=== PATIENT | male | born 1970 | race African-American/Black ===

== ENCOUNTER 2019-09-17 08:42 | Inpatient (IN) | payer OTHER ==
--- NOTE | 2019-09-17 09:00 | PDOC ---
History of Present Illness - General Chief Complaint: Pain, Acute Stated Complaint: RIGHT KNEE PAIN - History of Present Illness Initial Comments: The pt is a 49M w/ a history of HTN and aortic valve replacement (eliquis) who presents for evaluation of 6 days of worsening right knee pain. The pt reports walking more than usual over the last week. The pain is achy/sharp, mostly ant/ lateral, worse with movement and touch, and alleviated by rest. He has tried a topical cream with minimal relief. He states that he has been able to ambulate throughout the week. He denies fevers/chills, chest pain, trouble breathing, abdominal pain, N/V/C/D , dysuria, hematuria 09/17/19 09:22 Past History - Past Medical History Allergies/Adverse Reactions: Allergies Allergy/AdvReac Type Severity Reaction Status Date / Time No Known Allergies Allergy Verified 09/17/19 08:43 Home Medications: Ambulatory Orders Carvedilol [Coreg -] 12.5 mg PO BID 09/17/19 Furosemide [Lasix] 80 mg PO BID 09/17/19 Warfarin Sodium [Coumadin] 5 mg PO DAILY 09/17/19 Cardiac Disorders: Yes (AORTIC STENOSIS) COPD: No - Surgical History Cardiac Surgery: Yes (aortic valve) - Psycho Social/Smoking Cessation Hx Smoking History: Never smoked Hx Alcohol Use: No Drug/Substance Use Hx: No Review of Systems - Review of Systems Able to Perform ROS?: Yes Comments:: GENERAL/CONSTITUTIONAL: No fever or chills. No weakness HEAD, EYES, EARS, NOSE AND THROAT: No change in vision. No change in hearing. No sore throat CARDIOVASCULAR: No chest pain or shortness of breath RESPIRATORY: Denies cough, hemoptysis GASTROINTESTINAL: No nausea, vomiting, diarrhea or constipation GENITOURINARY: No dysuria, frequency, or change in urination MUSCULOSKELETAL: +R knee pain. No neck or back pain SKIN: No rash NEUROLOGIC: No headache, vertigo, loss of consciousness, or change in strength/ sensation ENDOCRINE: No increased thirst. No abnormal weight change HEMATOLOGIC/LYMPHATIC: +Coumadin ALLERGIC/IMMUNOLOGIC: No hives or skin allergy 09/17/19 09:00 Is the patient limited Khmer proficient: No *Physical Exam - Vital Signs Last Vital Signs Temp Pulse Resp BP Pulse Ox 98.1 F 63 16 126/58 L 100 09/17/19 08:42 09/17/19 08:42 09/17/19 08:42 09/17/19 08:42 09/17/19 08:42 - Physical Exam Comments: GENERAL: Awake, alert, and oriented to person/place/time, in no acute distress HEAD: No signs of trauma, normocephalic, atraumatic EYES: PERRLA, EOMI, sclera anicteric, conjunctiva clear ENT: Hearing grossly normal, nares patent, oropharynx clear without exudates. Moist mucosa LUNGS: No distress, speaks in full sentences, clear to auscultation bilaterally HEART: Regular rate and rhythm, normal S1 and S2, no murmurs appreciated, peripheral pulses normal and equal bilaterally ABDOMEN: Soft, nontender, normoactive bowel sounds. No guarding, no rebound EXTREMITIES: R lateral knee TTP, R tibial tuberosity TTP, mild R knee effusion, tenderness w/ active and passive ROM; Pain with valgus stress, no joint laxity appreciated; Left knee w/o TTP and w/ FROM NEUROLOGICAL: Cranial nerves II through XII grossly intact. Normal speech, no focal sensorimotor deficits SKIN: Warm, Dry 09/17/19 09:00 09/17/19 09:42 ED Treatment Course - LABORATORY CBC & Chemistry Diagram: 09/17/19 10:00 09/17/19 10:00 - RADIOLOGY Radiograph Interpretation: RAD/KNEE 2 POS-RIGHT 2 views of the right knee have been submitted. There is no sign of fracture or subluxation and no sign of blastic or lytic changes. There is a small joint effusion and fabella. If symptoms persist, further imaging and orthopedic consultation may be of help. 09/17/19 10:07 Medical Decision Making - Medical Decision Making The pt is a 49M w/ a history of HTN, aortic valve repair (coumadin) who presents for evaluation of 6 days of right knee pain. Ddx: overuse, gout, consider inflammation of LCL, ruptured perdomo cyst, not likely septic joint ED Course CMP, CBC, Uric acid, INR R knee XR Tylenol 1g for pain 09/17/19 09:39 Upon further questioning, pt endorses intermittent left toe pain Uric acid elevated to 46 Will treat with colchicine 1.2mg PO and Zofran 4mg IV Hypokalemia to 2.8, will replete with 10mg IV and 60mg PO Hyponatremia and hypochloridemia noted, will give IVF BUN worsening over several months as shown by old labs pt has, BUN 88 today and Cr stable at 3 No anemia, no leukocytosis Plan for admission for renal insufficiency, gout flair, and evaluation by Nephrology/Cardiology Pt signed out to [facility] Admitting 09/17/19 10:05 Discharge - Discharge Information Problems reviewed: Yes Clinical Impression/Diagnosis: Hypokalemia, Renal insufficiency Right knee pain Qualifiers: Chronicity: acute Qualified Code(s): M25.561 - Pain in right knee Gout Qualifiers: Gout site: knee Gout etiology: unspecified cause Chronicity: acute Laterality: right Qualified Code(s): M10.9 - Gout, unspecified Condition: Stable - Admission No - Follow up/Referral Referrals: Lucas Kimball MD [Primary Care Provider] - - Patient Discharge Instructions - Post Discharge Activity
--- NOTE | 2019-09-17 09:09 | PDOC ---
Attending Attestation - Resident Resident Name: MeraryTito enriquez - ED Attending Attestation I have performed the following: I have examined & evaluated the patient, The case was reviewed & discussed with the resident, I agree w/resident's findings & plan, Exceptions are as noted - HPI HPI: 09/17/19 09:38 49-year-old male with valvular heart disease, on Coreg/Lasix/warfarin, complains of severe right knee pain for several days. No definite trauma, although he was standing and walking more than usual for a few days before. Pain is located primarily laterally, and he is having extreme difficulty bearing weight and ambulating. There is no distal numbness tingling pain or weakness in the calf, ankle, or foot. He has had no fever/chills or other sign of systemic illness. - Physicial Exam PE: 09/17/19 09:40 Physical exam reveals normal vital signs. The patient is afebrile Normal exam except for the right knee. There is no deformity, although mild swelling and visible and palpable evidence of a small effusion are present. There is significant tenderness over the lateral joint space, LCL, and inferolateral patellar border. There is no definite increase in warmth or erythema. Because of the level of pain, it is not possible to adequately assess the MCL, LCL, and ACL, the patient is unable to relax and otherwise cooperate with the exam. There is no posterior calf swelling or tenderness, pulses are full, and there is no distal sensory or motor deficit. - Medical Decision Making 09/17/19 09:42 Assessment: Severe right knee pain, no history of trauma, but with the extent of pain it is possible that some sort of trauma has occurred. Other possibilities include gout or other metabolic arthropathy, hemorrhage into the joint due to warfarin therapy, ruptured Gardner's cyst, or early septic arthritis. Plan: White blood count, uric acid, ESR, metabolic profile, INR. X-ray. Further evaluation and treatment depending on results. Analgesics. Consider diagnostic and therapeutic arthrocentesis, especially since therapy with anti-inflammatory medication is limited due to the patient's use of warfarin. 09/17/19 11:19 Labs reveal a normal white blood count. However, BUN is 88, creatinine 3.0, potassium 2.8, uric acid 46, INR 3.6. Old records other than lab values retrieved from the patient's cell phone are not available. Review of available labs show that BUN has been climbing from approximately 50 since April, with creatinines maintained in the 3-4 range. No uric acid values available. Because of the semiurgent necessity of replacing potassium, treating elevated uric acid in the face of renal insufficiency, admission and monitoring. Nephrology and cardiac consultations. Pain control. [facility] hospitalist ANDRY Jimenez was contacted. She will see patient. To be admitted under Dr. Lorenzo.
[2019-09-17] MEDS ORDERED: ACETAMINOPHEN 325 MG TABLET (FP) PO ONE (09:20)
[2019-09-17] MEDS ORDERED: ACETAMINOPHEN 500 MG TABLET (FP) PO ONE (09:21)
[2019-09-17] MEDS ORDERED: ACETAMINOPHEN 500 MG TABLET (FP) ONE (09:23)
[2019-09-17 10:16] LABS: BASO % 0.9 % (0-2.0); EOS % 0.4 % (0-4.5); HEMATOCRIT 36.8 % (35.4-49); HEMOGLOBIN 11.8 GM/dl (11.7-16.9); LYMPH % 9.8 % (8-40); MCHC 32.2 g/dl (32.0-35.9); MEAN CELL VOLUME 90.2 fl (80-96); MEAN PLT VOLUME 9.9 fl (7.5-11.1); MONO % 10.4 % (3.8-10.2); NEUT % 78.5 % (42.8-82.8); PLATELET COUNT 83 K/MM3 (134-434); RBC 4.08 M/mm3 (4.00-5.60); RDW 14.4 % (11.9-15.9); WHITE BLOOD COUNT 5.7 K/mm3 (4.0-10.8)
[2019-09-17 10:18] LABS: INR 3.62 (0.82-1.09); PROTHROMBIN TIME (PATIENT) 39.5 SEC (10.2-13.0)
[2019-09-17 10:23] LABS: ALBUMIN 4.2 g/dl (3.4-5.0); BILIRUBIN,TOTAL 1.3 mg/dl (0.2-1); CALCIUM 9.3 mg/dl (8.5-10); TOT PROT 8.9 g/dl (6.4-8.2)
[2019-09-17 10:53] LABS: POTASSIUM 2.8 mmol/L (3.5-5.1); URIC ACID 46.5 mg/dl (2.6-7.2)
[2019-09-17] MEDS ORDERED: KCL 10 MEQ IVPB 10 MEQ/100 ML INFUS.BAG IVPB ONE (11:10)
[2019-09-17] MEDS ORDERED: SODIUM CHLORIDE 0.9% 500 ML INFUS.BAG IV ONE (11:18)
[2019-09-17] MEDS ORDERED: COLCHICINE 0.6 MG CAP PO ONE (11:18)
[2019-09-17] MEDS ORDERED: ONDANSETRON 4 MG/2 ML VIAL IVPUSH ONE (11:18)
[2019-09-17] MEDS ORDERED: POTASSIUM CHLORIDE TABS 20 MEQ TABLET.ER (FP) PO ONE ×2 (11:19→11:23)
[2019-09-17] MEDS ORDERED: COLCHICINE 0.6 MG CAP ONE (11:22)
[2019-09-17] MEDS ORDERED: ONDANSETRON 4 MG/2 ML VIAL ONE (11:23)
[2019-09-17] MEDS ORDERED: KCL 10 MEQ IVPB 10 MEQ/100 ML INFUS.BAG IVPB SCH (11:30)
[2019-09-17 11:44] LABS: CREATININE 3.2 mg/dl (0.55-1.3)
[2019-09-17 12:00] LABS: POTASSIUM 2.7 mmol/L (3.5-5.1)
--- NOTE | 2019-09-17 14:06 | HP ---
CHIEF COMPLAINT: Right knee pain Configuration Analyst: Dr. Lucas Kimball, [place] HISTORY OF PRESENT ILLNESS: 49-year-old male with a PMH significant for a congenital heart condition diagnosed at age 7, s/p mechanical aortic valve replacement at age 12, on lifelong coumadin. Also with heart failure (NOS) on high dose diuretics; s/p AICD in December 2018; s/p non-emergent cardiac cath several weeks ago, results pending. Also with chronic kidney disease with a baseline Cr 2.6-->3, and chronic hematuria. No recent changes in medications. On Saturday patient developed pain in his right knee. The pain has been severe and has prevented weight-bearing and ambulation. There is no distal numbness tingling pain or weakness in the calf, ankle, or foot. He has had no fever/chills or other sign of systemic illness. He has no previous history of gout or arthritis. ER course was notable for: (1) Platelets 83k (2) K 2.7; Cl 95; BUN 89; Cr 3.2 (3) INR 3.62 (4) Uric acid 46.5 (5) UA: RBC >100 (6) Colchicine PO 1.2mg x 1; NS x 1L; KCL IVPB 10meq x 1; K-dur PO 60mg x 1 (7) ECG: SR @63bpm, TW mild ST depressions II, III, AVF Recent Travel: No PAST MEDICAL HISTORY: Hypertension Heart failure NOS Chronic kidney disease Chronic hematuria PAST SURGICAL HISTORY: Mechanical aortic valve replacement age 12 AICD 12/2018 Social History: lives with sister in [place], presently not employed Smoking: never Alcohol: no Drugs: no Allergies No Known Allergies Allergy (Verified 09/17/19 08:43) HOME MEDICATIONS: Home Medications Medication Instructions Recorded Carvedilol [Coreg -] 12.5 mg PO BID 09/17/19 Furosemide [Lasix] 80 mg PO BID 09/17/19 Metolazone [Zaroxolyn -] 2.5 mg PO ASDIR 09/17/19 Warfarin Sodium [Coumadin] 2.5 mg PO ASDIR 09/17/19 Warfarin Sodium [Coumadin] 5 mg PO ASDIR 09/17/19 REVIEW OF SYSTEMS CONSTITUTIONAL: Absent: fever, chills, diaphoresis, generalized weakness, malaise, loss of appetite, weight change HEENT: Absent: rhinorrhea, nasal congestion, throat pain, throat swelling, difficulty swallowing, mouth swelling, ear pain, eye pain, visual changes CARDIOVASCULAR: Absent: chest pain, syncope, palpitations, irregular heart rate, lightheadedness , peripheral edema RESPIRATORY: Absent: cough, shortness of breath, dyspnea with exertion, orthopnea, wheezing, stridor, hemoptysis GASTROINTESTINAL: Absent: abdominal pain, abdominal distension, nausea, vomiting, diarrhea, constipation, melena, hematochezia GENITOURINARY: Absent: dysuria, frequency, urgency, hesitancy, hematuria, flank pain, genital pain MUSCULOSKELETAL: +right knee pain, swelling Absent: myalgia, arthralgia, joint swelling, back pain, neck pain SKIN: Absent: rash, itching, pallor HEMATOLOGIC/IMMUNOLOGIC: Absent: easy bleeding, easy bruising, lymphadenopathy, frequent infections ENDOCRINE: Absent: unexplained weight gain, unexplained weight loss, heat intolerance, cold intolerance NEUROLOGIC: Absent: headache, focal weakness or paresthesias, dizziness, unsteady gait, seizure, mental status changes, bladder or bowel incontinence PSYCHIATRIC: Absent: anxiety, depression, suicidal or homicidal ideation, hallucinations. PHYSICAL EXAMINATION Vital Signs - 24 hr 09/17/19 09/17/19 09/17/19 08:42 11:38 13:37 Temperature 98.1 F Pulse Rate 63 Pulse Rate [ 69 64 Left] Respiratory 16 15 15 Rate Blood Pressure 126/58 L Blood Pressure 116/67 107/57 L [Right Arm] O2 Sat by Pulse 100 99 100 Oximetry (%) GENERAL: Awake, alert, and fully oriented, in mild distress secondary to pain LUNGS: CTA HEART: Regular rate and rhythm, S1 and S2 mechanical valve sounds; well-healed mediastinal surgical scar ABDOMEN: Soft, nontender, not distended UPPER EXTREMITIES: 2+ pulses, warm, well-perfused. No cyanosis. No clubbing. No peripheral edema. RIGHT LOWER EXTREMITY: Right knee swollen, stiff, warm, exquisitely tender; 2+ pulse DP pulse, no calf tenderness NEUROLOGICAL: Cranial nerves II-XII intact. Normal speech. SKIN: Warm, dry, normal turgor Laboratory Results - last 24 hr 09/17/19 09/17/19 09/17/19 10:00 10:00 10:00 WBC 5.7 RBC 4.08 Hgb 11.8 Hct 36.8 MCV 90.2 MCH 29.0 MCHC 32.2 RDW 14.4 Plt Count 83 L MPV 9.9 Absolute Neuts (auto) 4.4 Neutrophils % 78.5 Lymphocytes % 9.8 Monocytes % 10.4 H Eosinophils % 0.4 Basophils % 0.9 ESR 28 H PT with INR INR Sodium 135 L Potassium 2.8 L* Chloride 95 L Carbon Dioxide 26 Anion Gap 14 BUN 88.0 H Creatinine 3.0 H Est GFR (CKD-EPI)AfAm 26.83 Est GFR (CKD-EPI)NonAf 23.15 Random Glucose 101 Uric Acid 46.5 H* Calcium 9.3 Total Bilirubin 1.3 H AST 21 ALT 11 L Alkaline Phosphatase 83 Creatine Kinase Troponin I Total Protein 8.9 H Albumin 4.2 Urine Color Urine Appearance Urine pH Urine Protein Urine Glucose (UA) Urine Ketones Urine Blood Urine Nitrite Urine Bilirubin Urine Urobilinogen Ur Leukocyte Esterase Urine RBC Urine WBC 09/17/19 09/17/19 09/17/19 10:00 10:00 10:00 WBC RBC Hgb Hct MCV MCH MCHC RDW Plt Count MPV Absolute Neuts (auto) Neutrophils % Lymphocytes % Monocytes % Eosinophils % Basophils % ESR PT with INR 39.5 H INR 3.62 H Sodium Potassium Chloride Carbon Dioxide Anion Gap BUN Creatinine Est GFR (CKD-EPI)AfAm Est GFR (CKD-EPI)NonAf Random Glucose Uric Acid Calcium Total Bilirubin AST ALT Alkaline Phosphatase Creatine Kinase 112 Troponin I 0.03 Total Protein Albumin Urine Color Urine Appearance Urine pH Urine Protein Urine Glucose (UA) Urine Ketones Urine Blood Urine Nitrite Urine Bilirubin Urine Urobilinogen Ur Leukocyte Esterase Urine RBC Urine WBC 09/17/19 09/17/19 11:07 11:46 WBC RBC Hgb Hct MCV MCH MCHC RDW Plt Count MPV Absolute Neuts (auto) Neutrophils % Lymphocytes % Monocytes % Eosinophils % Basophils % ESR PT with INR INR Sodium 135 L Potassium 2.7 L* Chloride 95 L Carbon Dioxide 28 Anion Gap 12 BUN 89.0 H Creatinine 3.2 H Est GFR (CKD-EPI)AfAm 24.82 Est GFR (CKD-EPI)NonAf 21.41 Random Glucose 99 Uric Acid Calcium 9.0 Total Bilirubin AST ALT Alkaline Phosphatase Creatine Kinase Troponin I Total Protein Albumin Urine Color Yellow Urine Appearance Clear Urine pH 6.0 Urine Protein Negative Urine Glucose (UA) Negative Urine Ketones Negative Urine Blood 3+ H Urine Nitrite Negative Urine Bilirubin Negative Urine Urobilinogen 1.0 Ur Leukocyte Esterase Negative Urine RBC >100 Urine WBC 0-2 ASSESSMENT/PLAN: 49-year-old male with a PMH significant for mechanical aortic valve replacement age 12, CHF, AICD, recent non-emergent cardiac cath, CKD, chronic hematuria. Admitted for a swollen, painful right knee. Painful, swollen right knee --r/o gout: uric acid significantly elevated; colchicine 1.8mg was dosed with little relief of symptoms; patient with renal impairment and also on a P- gp inhibitor (carvedilol); hold further colchicine; NSAIDS contraindicated (GFR <60, heart failure, on anticoagulation); glucocorticoids problematic due to possible concurrent infection; rheumatology consult placed --r/o septic joint: would be optimal to tap joint prior to starting antibiotics but supratherapeutic INR; will start empiric antibiotics ( mechanical valve and onset of symptoms several weeks after a cardiac cath); start vanc and zosyn renally dosed; echo in am; cardiology consult placed Hypokalemia --2.7 in ED, repleted -->3.6 Chronic kidney disease Chronic hematuria --according to patient, baseline BUN/Cr 50/2.6-->3.0; now 89/3.2 --will hold diuretics tonight, reassess after am labs Mechanical aortic valve --INR supratherapeutic (range 2.5-3.5 for mechanical valve) --hold warfarin tonight --repeat INR in am Heart failure, NOS --hold diuretics tonight --continue carvedilol Thrombocytopenia --monitor ECG changes --ECG: SR @63bpm, TW mild ST depressions II, III, AVF --troponins neg x 2 --cardiology consult FEN Fluids: PO intake adequate Electrolytes: replete as indicated Nutrition: low sodium DVT prophylaxis: INR supratherapeutic; hold coumadin tonight Dispo: continues to require inpatient care. Full code. Visit type - Emergency Visit Emergency Visit: Yes ED Registration Date: 09/17/19 Care time: The patient presented to the Emergency Department on the above date and was hospitalized for further evaluation of their emergent condition. - New Patient This patient is new to me today: Yes Date on this admission: 09/17/19 - Critical Care Critical Care patient: No
[2019-09-17] MEDS ORDERED: COLCHICINE 0.6 MG CAP PO STA (14:52)
[2019-09-17 15:35] VITALS: BMI 22.5
[2019-09-17 17:37] LABS: ALBUMIN 3.8 g/dl (3.4-5.0); BILIRUBIN,TOTAL 1.3 mg/dl (0.2-1); CALCIUM 8.9 mg/dl (8.5-10); MAGNESIUM 2.1 mg/dL (1.8-2.4); POTASSIUM 3.6 mmol/L (3.5-5.1); TOT PROT 8.5 g/dl (6.4-8.2)
[2019-09-17] MEDS ORDERED: VANCOMYCIN 1,000 MG in DEXTROSE 5%-WATER - 250 ML IVPB SCH (19:00)
[2019-09-17] MEDS ORDERED: VANCOMYCIN 1 GRAM (PRE-DOCKED) 1,000 MG/250 ML BAG IVPB SCH (19:15)
[2019-09-17 20:25] LABS: EPITHELIAL CELLS FEW /hpf
[2019-09-17] MEDS ORDERED: PIPERACILLIN/TAZOB 2.25 GM 2.25 GM in DEXTROSE 5%-WATER - 50 ML IVPB SCH (21:00)
[2019-09-17] MEDS ORDERED: PIPERACILLIN/TAZOBACTAM 2.25 GM VIAL IVPB ONE (21:40)
[2019-09-17] MEDS ORDERED: DEXTROSE 5%-WATER - 50 ML IVPB ONE (21:41)
[2019-09-17] MEDS: PIPERACILLIN/TAZOB 2.25 GM 2.25 GM in DEXTROSE 5%-WATER - 50 ML IVPB SCH (21:43)
[2019-09-17] MEDS: HEPARIN NA (PORCINE) 5,000 UNITS/ML 1ML VIAL SQ SCH (21:44)
[2019-09-17] MEDS ORDERED: CARVEDILOL 12.5 MG TABLET (FP) PO SCH (22:00)
[2019-09-18] MEDS ORDERED: PIPERACILLIN/TAZOBACTAM 2.25 GM VIAL IVPB ONE ×4 (03:15→20:52)
[2019-09-18] MEDS ORDERED: DEXTROSE 5%-WATER - 50 ML IVPB ONE ×4 (03:15→20:52)
[2019-09-18] MEDS: PIPERACILLIN/TAZOB 2.25 GM 2.25 GM in DEXTROSE 5%-WATER - 50 ML IVPB SCH ×3 (03:25→15:00)
[2019-09-18] MEDS: ACETAMINOPHEN 1000 MG/100 ML VIAL (NON FORMULARY) IVPB PRN ×2 (05:34→21:31)
[2019-09-18] MEDS: HEPARIN NA (PORCINE) 5,000 UNITS/ML 1ML VIAL SQ SCH (05:35)
[2019-09-18 08:01] LABS: BASO % 0.6 % (0-2.0); HEMATOCRIT 33.6 % (35.4-49); HEMOGLOBIN 11.2 GM/dl (11.7-16.9); INR 3.45 (0.82-1.09); LYMPH % 14.5 % (8-40); MCH 30.2 pg (25.7-33.7); MCHC 33.2 g/dl (32.0-35.9); MEAN CELL VOLUME 91.1 fl (80-96); MEAN PLT VOLUME 10.3 fl (7.5-11.1); MONO % 12.3 % (3.8-10.2); NEUT % 71.6 % (42.8-82.8); PLATELET COUNT 69 K/MM3 (134-434); PROTHROMBIN TIME (PATIENT) 37.7 SEC (10.2-13.0); RBC 3.69 M/mm3 (4.00-5.60); WHITE BLOOD COUNT 4.7 K/mm3 (4.0-10.8)
[2019-09-18 08:09] LABS: ACTIVATED PTT 61.2 SECONDS (25.2-36.5)
[2019-09-18 08:24] LABS: ALBUMIN 3.6 g/dl (3.4-5.0); BILIRUBIN,TOTAL 1.2 mg/dl (0.2-1); CALCIUM 9.2 mg/dl (8.5-10); CREATININE 3.2 mg/dl (0.55-1.3); MAGNESIUM 1.9 mg/dL (1.8-2.4); PHOSPHOROUS 3.8 mg/dl (2.5-4.9); POTASSIUM 3.2 mmol/L (3.5-5.1); TOT PROT 7.9 g/dl (6.4-8.2)
--- NOTE | 2019-09-18 08:57 | PN ---
Physical Exam: SUBJECTIVE: Patient seen and examined at bedside. OBJECTIVE: Vital Signs Period Temp Pulse Resp BP Sys/[place] Pulse Ox Last 24 Hr 97.6 F-98.6 F 62-69 15-20 100-118/45-67 96-100 GENERAL: The patient is awake, alert, and fully oriented, in no acute distress. HEAD: Normal with no signs of trauma. EYES: PERRL, extraocular movements intact, sclera anicteric, conjunctiva clear. No ptosis. ENT: Ears normal, nares patent, oropharynx clear without exudates, moist mucous membranes. NECK: Trachea midline, full range of motion, supple. LUNGS: Breath sounds equal, clear to auscultation bilaterally, no wheezes, no crackles, no accessory muscle use. HEART: Regular rate and rhythm, S1, S2 without murmur, rub or gallop. ABDOMEN: Soft, nontender, nondistended, normoactive bowel sounds, no guarding, no rebound, no hepatosplenomegaly, no masses. EXTREMITIES: 2+ pulses, warm, well-perfused, no edema. NEUROLOGICAL: Cranial nerves II through XII grossly intact. Normal speech, gait not observed. PSYCH: Depressed affect. SKIN: Warm, dry, normal turgor, no rashes or lesions noted Laboratory Results - last 24 hr 09/17/19 09/17/19 09/17/19 10:00 10:00 10:00 WBC 5.7 RBC 4.08 Hgb 11.8 Hct 36.8 MCV 90.2 MCH 29.0 MCHC 32.2 RDW 14.4 Plt Count 83 L MPV 9.9 Absolute Neuts (auto) 4.4 Neutrophils % 78.5 Lymphocytes % 9.8 Monocytes % 10.4 H Eosinophils % 0.4 Basophils % 0.9 ESR 28 H PT with INR INR PTT (Actin FS) Sodium 135 L Potassium 2.8 L* Chloride 95 L Carbon Dioxide 26 Anion Gap 14 BUN 88.0 H Creatinine 3.0 H Est GFR (CKD-EPI)AfAm 26.83 Est GFR (CKD-EPI)NonAf 23.15 Random Glucose 101 Uric Acid 46.5 H* Calcium 9.3 Phosphorus Magnesium Total Bilirubin 1.3 H AST 21 ALT 11 L Alkaline Phosphatase 83 Creatine Kinase Troponin I C-Reactive Protein Total Protein 8.9 H Albumin 4.2 Urine Color Urine Appearance Urine pH Urine Protein Urine Glucose (UA) Urine Ketones Urine Blood Urine Nitrite Urine Bilirubin Urine Urobilinogen Ur Leukocyte Esterase Urine RBC Urine WBC Ur Transition Epith Cell Urine Bacteria 09/17/19 09/17/19 09/17/19 10:00 10:00 10:00 WBC RBC Hgb Hct MCV MCH MCHC RDW Plt Count MPV Absolute Neuts (auto) Neutrophils % Lymphocytes % Monocytes % Eosinophils % Basophils % ESR PT with INR 39.5 H INR 3.62 H PTT (Actin FS) Sodium Potassium Chloride Carbon Dioxide Anion Gap BUN Creatinine Est GFR (CKD-EPI)AfAm Est GFR (CKD-EPI)NonAf Random Glucose Uric Acid Calcium Phosphorus Magnesium Total Bilirubin AST ALT Alkaline Phosphatase Creatine Kinase 112 Troponin I 0.03 C-Reactive Protein Total Protein Albumin Urine Color Urine Appearance Urine pH Urine Protein Urine Glucose (UA) Urine Ketones Urine Blood Urine Nitrite Urine Bilirubin Urine Urobilinogen Ur Leukocyte Esterase Urine RBC Urine WBC Ur Transition Epith Cell Urine Bacteria 09/17/19 09/17/19 09/17/19 11:07 11:07 11:07 WBC RBC Hgb Hct MCV MCH MCHC RDW Plt Count MPV Absolute Neuts (auto) Neutrophils % Lymphocytes % Monocytes % Eosinophils % Basophils % ESR PT with INR INR PTT (Actin FS) Sodium 135 L Potassium 2.7 L* Chloride 95 L Carbon Dioxide 28 Anion Gap 12 BUN 89.0 H Creatinine 3.2 H Est GFR (CKD-EPI)AfAm 24.82 Est GFR (CKD-EPI)NonAf 21.41 Random Glucose 99 Uric Acid Calcium 9.0 Phosphorus Magnesium 2.1 Total Bilirubin AST ALT Alkaline Phosphatase Creatine Kinase Troponin I C-Reactive Protein 0.4 H Total Protein Albumin Urine Color Urine Appearance Urine pH Urine Protein Urine Glucose (UA) Urine Ketones Urine Blood Urine Nitrite Urine Bilirubin Urine Urobilinogen Ur Leukocyte Esterase Urine RBC Urine WBC Ur Transition Epith Cell Urine Bacteria 09/17/19 09/17/19 09/17/19 11:46 16:45 16:45 WBC RBC Hgb Hct MCV MCH MCHC RDW Plt Count MPV Absolute Neuts (auto) Neutrophils % Lymphocytes % Monocytes % Eosinophils % Basophils % ESR PT with INR INR PTT (Actin FS) Sodium 137 Potassium 3.6 Chloride 98 Carbon Dioxide 29 Anion Gap 10 BUN 88.0 H Creatinine 3.0 H Est GFR (CKD-EPI)AfAm 26.83 Est GFR (CKD-EPI)NonAf 23.15 Random Glucose 94 Uric Acid Calcium 8.9 Phosphorus Magnesium 2.1 Total Bilirubin 1.3 H AST 19 ALT 12 L Alkaline Phosphatase 80 Creatine Kinase Troponin I 0.03 C-Reactive Protein Total Protein 8.5 H Albumin 3.8 Urine Color Yellow Urine Appearance Clear Urine pH 6.0 Urine Protein Negative Urine Glucose (UA) Negative Urine Ketones Negative Urine Blood 3+ H Urine Nitrite Negative Urine Bilirubin Negative Urine Urobilinogen 1.0 Ur Leukocyte Esterase Negative Urine RBC >100 Urine WBC 0-2 Ur Transition Epith Cell Urine Bacteria 09/17/19 09/18/19 09/18/19 20:00 07:21 07:21 WBC 4.7 RBC 3.69 L Hgb 11.2 L Hct 33.6 L MCV 91.1 MCH 30.2 MCHC 33.2 RDW 14.0 Plt Count 69 L MPV 10.3 Absolute Neuts (auto) 3.4 Neutrophils % 71.6 Lymphocytes % 14.5 D Monocytes % 12.3 H Eosinophils % 1.0 D Basophils % 0.6 ESR PT with INR 37.7 H INR 3.45 H PTT (Actin FS) 61.2 H Sodium Potassium Chloride Carbon Dioxide Anion Gap BUN Creatinine Est GFR (CKD-EPI)AfAm Est GFR (CKD-EPI)NonAf Random Glucose Uric Acid Calcium Phosphorus Magnesium Total Bilirubin AST ALT Alkaline Phosphatase Creatine Kinase Troponin I C-Reactive Protein Total Protein Albumin Urine Color Yellow Urine Appearance Clear Urine pH 6.0 Urine Protein Negative Urine Glucose (UA) Negative Urine Ketones Negative Urine Blood 3+ H Urine Nitrite Negative Urine Bilirubin Negative Urine Urobilinogen 4.0 e.u/dl Ur Leukocyte Esterase Negative Urine RBC 40-60 Urine WBC 0-2 Ur Transition Epith Cell Few Urine Bacteria Rare 09/18/19 07:21 WBC RBC Hgb Hct MCV MCH MCHC RDW Plt Count MPV Absolute Neuts (auto) Neutrophils % Lymphocytes % Monocytes % Eosinophils % Basophils % ESR PT with INR INR PTT (Actin FS) Sodium 138 Potassium 3.2 L Chloride 99 Carbon Dioxide 28 Anion Gap 11 BUN 80.0 H Creatinine 3.2 H Est GFR (CKD-EPI)AfAm 24.82 Est GFR (CKD-EPI)NonAf 21.41 Random Glucose 100 Uric Acid Calcium 9.2 Phosphorus 3.8 Magnesium 1.9 Total Bilirubin 1.2 H AST 19 ALT 12 L Alkaline Phosphatase 71 Creatine Kinase Troponin I C-Reactive Protein Total Protein 7.9 Albumin 3.6 Urine Color Urine Appearance Urine pH Urine Protein Urine Glucose (UA) Urine Ketones Urine Blood Urine Nitrite Urine Bilirubin Urine Urobilinogen Ur Leukocyte Esterase Urine RBC Urine WBC Ur Transition Epith Cell Urine Bacteria Active Medications Generic Name Dose Route Start Last Admin Trade Name Freq PRN Reason Stop Dose Admin Acetaminophen 1,000 mg 09/17/19 20:07 09/18/19 05:34 Ofirmev Injection - IVPB 1,000 mg Q6H PRN Administration PAIN LEVEL 1-5 Carvedilol 12.5 mg 09/18/19 10:00 Coreg - PO BID SOLO Furosemide 80 mg 09/18/19 10:00 Lasix - PO BID SOLO Heparin Sodium (Porcine) 5,000 unit 09/17/19 22:00 09/18/19 05:35 Heparin - SQ 5,000 unit TID SOLO Administration Vancomycin HCl 1,000 mg/ 250 mls @ 166.667 mls/hr 09/17/19 19:15 Dextrose IVPB Q24H SOLO Protocol Piperacillin Sod/Tazobactam 50 mls @ 100 mls/hr 09/17/19 21:00 Sod 2.25 gm/ Dextrose IVPB Q6H-IV SOLO Protocol Piperacillin Sod/Tazobactam 50 mls @ 100 mls/hr 09/17/19 21:00 09/18/19 03:25 Sod 2.25 gm/ Dextrose IVPB 09/18/19 15:29 100 mls/hr Q6H-IV SOLO Administration Protocol Metolazone 2.5 mg 09/18/19 10:00 Zaroxolyn - PO DAILY SOLO Potassium Chloride 40 meq 09/18/19 08:45 K-Dur - PO 09/18/19 14:46 Q6H SOLO ADDITIONAL HPI: History from [facility]/Dr. Lucas Kimball. Patient with congenital aortic stenosis: (1) two mechanical aortic valve replacements, ages 7 and 9; (2) LV to aortic conduit, age 10. Now with biventricular systolic and diastolic heart failure with recurrent exacerbations, moderate pulmonary HTN. ASSESSMENT/PLAN: 49-year-old male with a PMH significant for congenital aortic stenosis s/p two mechanical aortic valve replacements, ages 7 and 9, s/p LV to aortic conduit, age 10, s/p AICD, biventricular systolic and diastolic heart failure with recurrent exacerbations, HTN, moderate pulmonary HTN, CKD, and chronic hematuria , Admitted for a swollen, painful right knee. Painful, swollen right knee --r/o gout: spot uric acid significantly elevated; colchicine 1.8mg was dosed with little relief of symptoms; patient with renal impairment and also on a P-gp inhibitor (carvedilol); hold further colchicine; NSAIDS contraindicated ( GFR <60, heart failure, on anticoagulation); glucocorticoids problematic due to possible concurrent infection; rheumatology consult pending --r/o septic joint: would have been optimal to tap joint prior to starting antibiotics but supratherapeutic INR; continue empiric Vanc and Zosyn pending echo to r/o vegetation; cardiology consult pending; ID consult pending --r/o mechanical cause: seen and evaluated by Dr. Olson, meniscal tear v. stress injury to bone? would like to get MRI; discussed with [facility] cardiology team, they will get back to us re: compatability with mechanical valve; AICD should be able to switched to MRI mode by [employer] Hypokalemia --repleted again Chronic kidney disease Chronic hematuria --according to patient, baseline BUN/Cr 50/2.6-->3.0; now 80/3.2 --resumed home diuretic regimen, Lasix PO 80mg BID, metolazone 2.5mg daily Mechanical aortic valve --INR 3.45 today (goal 2.5-3.5) --warfain 2.5mg today --daily INR, daily dosing Biventricular systolic and diastolic heart failure --resumed diuretics Hypertension --continue carvedilol Thrombocytopenia --continue to monitor ECG changes --ECG: SR @63bpm, TW mild ST depressions II, III, AVF --troponins neg x 2 --cardiology consult FEN Fluids: PO intake adequate Electrolytes: replete as indicated Nutrition: low sodium DVT prophylaxis: INR therapeutic; dose coumadin 2.5mg today Dispo: continues to require inpatient care. Full code. Visit type - Emergency Visit Emergency Visit: Yes ED Registration Date: 09/17/19 Care time: The patient presented to the Emergency Department on the above date and was hospitalized for further evaluation of their emergent condition. - New Patient This patient is new to me today: No - Critical Care Critical Care patient: Yes Total Critical Care Time (in minutes): 60 Critical Care Statement: The care of this patient involved high complexity decision making to prevent further life threatening deterioration of the patient 's condition and/or to evaluate & treat vital organ system(s) failure or risk of failure.
--- NOTE | 2019-09-18 09:19 | CON.ORTH ---
Consult Consult Specialty:: orthopedics - History of Present Illness Chief Complaint: R knee pain History of Present Illness: 49y M here w several days of worsening R knee pain no trauma felt pain mainly laterally no history of swollen or painful joints pt does have CRI no fevers, no chills no numbness or tingling no pain elsewhere - History Source History Provided By: Patient, Medical Record Limitations to Obtaining History: No Limitations - Past Medical History Cardio/Vascular: Yes: Other (congenital heart disease) Renal/: Yes: Renal Inusuff - Past Surgical History Past Surgical History: Yes: Valve Replacement - Alcohol/Substance Use Hx Alcohol Use: No - Smoking History Smoking history: Never smoked Have you smoked in the past 12 months: No Home Medications - Allergies Allergies/Adverse Reactions: Allergies Allergy/AdvReac Type Severity Reaction Status Date / Time No Known Allergies Allergy Verified 09/17/19 08:43 - Home Medications Home Medications: Ambulatory Orders Carvedilol [Coreg -] 12.5 mg PO BID 09/17/19 Furosemide [Lasix] 80 mg PO BID 09/17/19 Metolazone [Zaroxolyn -] 2.5 mg PO ASDIR 09/17/19 Warfarin Sodium [Coumadin] 2.5 mg PO ASDIR 09/17/19 Warfarin Sodium [Coumadin] 5 mg PO ASDIR 09/17/19 Physical Exam for Ortho Vital Signs: Vital Signs Temperature 98.0 F 09/18/19 05:00 Pulse Rate 62 09/18/19 05:00 Respiratory Rate 16 09/18/19 09:00 Blood Pressure 118/54 L 09/18/19 05:00 O2 Sat by Pulse Oximetry (%) 98 09/18/19 09:00 Constitutional: Yes: Well Nourished, No Distress, Calm (Right knee exam:) Labs: CBC, BMP 09/18/19 07:21 09/18/19 07:21 INR, PTT INR 3.45 (0.82-1.09) H 09/18/19 07:21 Imaging - Results X-ray: Report Reviewed, Image Reviewed (Slight degenerative change.) Problem List - Problems (1) Right knee pain Assessment/Plan: I discussed today's findings with Mr. Collins. Given his lack of fever, lack of white count, lack of large effusion, lack of warmth, infection seems very unlikely. His elevated ESR may be due to his underlying renal disease. While a gout presentation can be variable, the lack of inflammatory symptoms make out less likely to explain severe pain in this situation. I believe more likely is some type of mechanical cause. I am ordering MRI to rule out meniscal tear or stress injury to the bone. Code(s): M25.561 - PAIN IN RIGHT KNEE Qualifiers: Chronicity: acute Qualified Code(s): M25.561 - Pain in right knee
[2019-09-18] MEDS ORDERED: PT OWN MED DRAWER 7, Y5N ONE (09:28)
[2019-09-18] MEDS ORDERED: METOLAZONE 2.5 MG TABLET (FP) PO SCH (09:30)
[2019-09-18] MEDS: POTASSIUM CHLORIDE TABS 20 MEQ TABLET.ER (FP) PO SCH ×2 (09:44→16:00)
[2019-09-18] MEDS: CARVEDILOL 12.5 MG TABLET (FP) PO SCH ×2 (09:46→21:30)
[2019-09-18] MEDS: FUROSEMIDE 40 MG TABLET (FP) PO SCH ×2 (09:46→17:27)
[2019-09-18] MEDS ORDERED: WARFARIN NA 2.5 MG TABLET (FP) PO ONE ×2 (10:30→18:00)
[2019-09-18 11:48] LABS: N-TERMINAL BNP 6636.7 pg/ml (5-125)
--- NOTE | 2019-09-18 13:19 | EKG ---
Test Reason : Blood Pressure : / mmHG Vent. Rate : 069 BPM Atrial Rate : 069 BPM P-R Int : 142 ms QRS Dur : 108 ms QT Int : 420 ms P-R-T Axes : 030 089 263 degrees QTc Int : 450 ms SINUS RHYTHM WITH SINUS ARRHYTHMIA WITH OCCASIONAL PREMATURE VENTRICULAR COMPLEXES NONSPECIFIC ST AND T WAVE ABNORMALITY ABNORMAL ECG WHEN COMPARED WITH ECG OF 17-SEP-2019 11:28, PREMATURE VENTRICULAR COMPLEXES ARE NOW PRESENT Confirmed by HARDY TALLEY MD ([id number]) on 09/18/2019 1:19:25 PM Referred By: ARTHUR ROMANO Confirmed By:HARDY TALLEY MD
--- NOTE | 2019-09-18 13:34 | EKG ---
Test Reason : Blood Pressure : / mmHG Vent. Rate : 063 BPM Atrial Rate : 063 BPM P-R Int : 146 ms QRS Dur : 108 ms QT Int : 430 ms P-R-T Axes : 026 100 -82 degrees QTc Int : 440 ms NORMAL SINUS RHYTHM RIGHTWARD AXIS ABNORMAL ECG NO PREVIOUS ECGS AVAILABLE Confirmed by HARDY TALLEY MD ([id number]) on 09/18/2019 1:34:04 PM Referred By: GENTRY CANDELARIO Confirmed By:HARDY TALLEY MD
--- NOTE | 2019-09-18 14:23 | DS ---
Physical Exam: SUBJECTIVE: Patient seen and examined OBJECTIVE: Vital Signs Period Temp Pulse Resp BP Sys/[place] Pulse Ox Last 24 Hr 98.0 F-98.6 F 62-69 16-20 98-118/45-60 96-99 PHYSICAL EXAM GENERAL: Awake, alert, and fully oriented, in mild distress secondary to pain LUNGS: CTA HEART: Regular rate and rhythm, S1 and S2 mechanical valve sounds; well-healed mediastinal surgical scar ABDOMEN: Soft, nontender, not distended UPPER EXTREMITIES: 2+ pulses, warm, well-perfused. No cyanosis. No clubbing. No peripheral edema. RIGHT LOWER EXTREMITY: Right knee swollen, stiff, warm, exquisitely tender; 2+ pulse DP pulse, no calf tenderness NEUROLOGICAL: Cranial nerves II-XII intact. Normal speech. SKIN: Warm, dry, normal turgor LABS Laboratory Results - last 24 hr 09/17/19 09/17/19 09/17/19 11:07 11:07 16:45 WBC RBC Hgb Hct MCV MCH MCHC RDW Plt Count MPV Absolute Neuts (auto) Neutrophils % Lymphocytes % Monocytes % Eosinophils % Basophils % PT with INR INR PTT (Actin FS) Sodium 137 Potassium 3.6 Chloride 98 Carbon Dioxide 29 Anion Gap 10 BUN 88.0 H Creatinine 3.0 H Est GFR (CKD-EPI)AfAm 26.83 Est GFR (CKD-EPI)NonAf 23.15 Random Glucose 94 Calcium 8.9 Phosphorus Magnesium 2.1 2.1 Total Bilirubin 1.3 H AST 19 ALT 12 L Alkaline Phosphatase 80 Troponin I C-Reactive Protein 0.4 H B-Natriuretic Peptide Total Protein 8.5 H Albumin 3.8 Urine Color Urine Appearance Urine pH Urine Protein Urine Glucose (UA) Urine Ketones Urine Blood Urine Nitrite Urine Bilirubin Urine Urobilinogen Ur Leukocyte Esterase Urine RBC Urine WBC Ur Transition Epith Cell Urine Bacteria 09/17/19 09/17/19 09/18/19 16:45 20:00 07:21 WBC 4.7 RBC 3.69 L Hgb 11.2 L Hct 33.6 L MCV 91.1 MCH 30.2 MCHC 33.2 RDW 14.0 Plt Count 69 L MPV 10.3 Absolute Neuts (auto) 3.4 Neutrophils % 71.6 Lymphocytes % 14.5 D Monocytes % 12.3 H Eosinophils % 1.0 D Basophils % 0.6 PT with INR INR PTT (Actin FS) Sodium Potassium Chloride Carbon Dioxide Anion Gap BUN Creatinine Est GFR (CKD-EPI)AfAm Est GFR (CKD-EPI)NonAf Random Glucose Calcium Phosphorus Magnesium Total Bilirubin AST ALT Alkaline Phosphatase Troponin I 0.03 C-Reactive Protein B-Natriuretic Peptide Total Protein Albumin Urine Color Yellow Urine Appearance Clear Urine pH 6.0 Urine Protein Negative Urine Glucose (UA) Negative Urine Ketones Negative Urine Blood 3+ H Urine Nitrite Negative Urine Bilirubin Negative Urine Urobilinogen 4.0 e.u/dl Ur Leukocyte Esterase Negative Urine RBC 40-60 Urine WBC 0-2 Ur Transition Epith Cell Few Urine Bacteria Rare 09/18/19 09/18/19 07:21 07:21 WBC RBC Hgb Hct MCV MCH MCHC RDW Plt Count MPV Absolute Neuts (auto) Neutrophils % Lymphocytes % Monocytes % Eosinophils % Basophils % PT with INR 37.7 H INR 3.45 H PTT (Actin FS) 61.2 H Sodium 138 Potassium 3.2 L Chloride 99 Carbon Dioxide 28 Anion Gap 11 BUN 80.0 H Creatinine 3.2 H Est GFR (CKD-EPI)AfAm 24.82 Est GFR (CKD-EPI)NonAf 21.41 Random Glucose 100 Calcium 9.2 Phosphorus 3.8 Magnesium 1.9 Total Bilirubin 1.2 H AST 19 ALT 12 L Alkaline Phosphatase 71 Troponin I C-Reactive Protein B-Natriuretic Peptide 6636.7 H Total Protein 7.9 Albumin 3.6 Urine Color Urine Appearance Urine pH Urine Protein Urine Glucose (UA) Urine Ketones Urine Blood Urine Nitrite Urine Bilirubin Urine Urobilinogen Ur Leukocyte Esterase Urine RBC Urine WBC Ur Transition Epith Cell Urine Bacteria HOSPITAL COURSE: Date of Admission:09/17/19 Date of Discharge: 09/18/19 Pre hospital course 49-year-old male with a PMH significant for a congenital heart condition diagnosed at age 7, s/p mechanical aortic valve replacement at age 12, on lifelong coumadin. Also with heart failure (NOS) on high dose diuretics; s/p AICD in December 2018; s/p non-emergent cardiac cath several weeks ago, results pending. Also with chronic kidney disease with a baseline Cr 2.6-->3, and chronic hematuria. No recent changes in medications. On Saturday patient developed pain in his right knee. The pain has been severe and has prevented weight-bearing and ambulation. There is no distal numbness tingling pain or weakness in the calf, ankle, or foot. He has had no fever/chills or other sign of systemic illness. He has no previous history of gout or arthritis. ER course (1) Platelets 83k (2) K 2.7; Cl 95; BUN 89; Cr 3.2 (3) INR 3.62 (4) Uric acid 46.5 (5) UA: RBC >100 (6) Colchicine PO 1.2mg x 1; NS x 1L; KCL IVPB 10meq x 1; K-dur PO 60mg x 1 (7) ECG: SR @63bpm, TW mild ST depressions II, III, AVF Subsequent hospital course Painful, swollen right knee --r/o gout: spot uric acid 46.5; colchicine 1.8mg was dosed with little relief of symptoms; discussed case with rheumatology Dr. Lebron; if echo is negative for infectious process, he would recommend starting prednisone 40mg x 3 days with a slow taper --r/o septic joint: would have been optimal to tap joint prior to starting antibiotics but INR 3.5; started empiric vanc and zosyn renally dosed; echo done , pending dictation --r/o ortho: seen and evaluated by Dr. Olson: Given his lack of fever, lack of white count, lack of large effusion, lack of warmth, infection seems very unlikely. His elevated ESR may be due to his underlying renal disease. While a gout presentation can be variable, the lack of inflammatory symptoms make out less likely to explain severe pain in this situation. I believe more likely is some type of mechanical cause. I am ordering MRI to rule out meniscal tear or stress injury to the bone. Hypokalemia --repleted Chronic kidney disease Chronic hematuria --BUN/Cr 89/3.2, same as on 04/29/19 labs from [facility] --continued home diurectic regimen lasix PO 80mg BID, metolazone 2.5mg daily Mechanical aortic valve --INR 3.45 today (goal 2.5-3.5) --warfain 2.5mg today --daily INR, daily dosing Biventricular systolic and diastolic heart failure --appears euvolemic --continued diuretics Hypertension --continued carvedilol Thrombocytopenia --continue to monitor ECG changes --ECG: SR @63bpm, TW mild ST depressions II, III, AVF --troponins neg x 2 --cardiology consult cancelled due to imminent transfer to [facility] Fluids: PO intake adequate Electrolytes: repleted as indicated Nutrition: low sodium DVT prophylaxis: INR therapeutic; dosed coumadin 2.5mg today Dispo: transfer to [facility], service of Dr. Lucas Kimball. Full code. Minutes to complete discharge: 35 Discharge Summary Problems reviewed: Yes Reason For Visit: GOUT/RENAL FAILURE/HYPOKALEMIA Current Active Problems Gout (Acute) Hypokalemia (Acute) Renal insufficiency (Acute) Right knee pain (Acute) Condition: Stable - Instructions Referrals: Lucas Kimball MD [Primary Care Provider] - - Home Medications Comprehensive Discharge Medication List: Ambulatory Orders Carvedilol [Coreg -] 12.5 mg PO BID 09/17/19 Furosemide [Lasix] 80 mg PO BID 09/17/19 Metolazone [Zaroxolyn -] 2.5 mg PO ASDIR 09/17/19 Warfarin Sodium [Coumadin] 2.5 mg PO ASDIR 09/17/19 Warfarin Sodium [Coumadin] 5 mg PO ASDIR 09/17/19 This patient is new to me today: No Emergency Visit: Yes ED Registration Date: 09/17/19 Care time: The patient presented to the Emergency Department on the above date and was hospitalized for further evaluation of their emergent condition. Critical Care patient: Yes Total Critical Care Time (in minutes): 60 Critical Care Statement: The care of this patient involved high complexity decision making to prevent further life threatening deterioration of the patient 's condition and/or to evaluate & treat vital organ system(s) failure or risk of failure. - Discharge Referral Referred to [facility] No
--- NOTE | 2019-09-18 15:02 | ECHO ---
Name: SHAI RIDLEY Exam:Adult Echocardiogram Study Date: 09/18/2019 02:01 PM Age: 49 yrs Reason For Study: s/p [employer]OUND [employer]ER AGE 12,CHF Height: 65 in Weight: 143 lb BSA: 1.7 m2 MMode/2D Measurements & Calculations IVSd: 0.78 cm Ao root diam: 1.8 cm LVIDd: 3.7 cm LA dimension: 3.3 cm LVIDs: 2.6 cm LVPWd: 0.94 cm EDV(Teich): 59.4 ml LVOT diam: 1.6 cm ESV(Teich): 25.1 ml Doppler Measurements & Calculations MV E max verna: 96.9 cm/sec MV A max verna: 60.6 cm/sec MV dec slope: 477.0 cm/sec2 MV E/A: 1.6 Ao V2 max: 264.0 cm/sec LV V1 max P.52 mmHg Ao max P.9 mmHg LV V1 mean P.37 mmHg Ao V2 mean: 197.3 cm/sec LV V1 max: 36.0 cm/sec Ao mean P.5 mmHg LV V1 mean: 29.5 cm/sec Ao V2 VTI: 62.2 cm LV V1 VTI: 6.9 cm JAKE(I,D): 0.22 cm2 JAKE(V,D): 0.26 cm2 MR max verna: 315.0 cm/sec SV(LVOT): 13.4 ml MR max P.7 mmHg TR max verna: 359.1 cm/sec PA V2 max: 152.1 cm/sec TR max P.2 mmHg PA max P.2 mmHg PI end-d verna: 192.4 cm/sec Procedure The study was technically difficult with many images being suboptimal in quality. Left Ventricle The left ventricle is not well visualized. Left ventricular systolic function is grossly normal. Sarah onal wall motion abnormalities cannot be excluded due to limited visualization. The left ventricular apex is no t well visualized. Right Ventricle The right ventricle is not well visualized. There is a pacemaker lead in the right ventricle. Borderl ine right ventricular enlargement. Right ventricular function cannot be assessed due to poor image quality. Atria The left atrium is mildly dilated. The right atrium is borderline dilated. Mitral Valve The mitral valve is grossly normal. There is no mitral valve stenosis. There is mild mitral regurgita tion. Tricuspid Valve The tricuspid valve is not well visualized. There is mild to moderate tricuspid regurgitation. Right ventricular systolic pressure is elevated at >60mmHg. There is severe pulmonary hypertension. Aortic Valve There is a prosthetic aortic valve. Mild to moderate valvular aortic stenosis. Moderate to severe aor tic regurgitation. Pulmonic Valve The pulmonic valve is not well visualized. Great Vessels The aortic root is not well visualized. Pericardium/Pleura There is no pericardial effusion. Interpretation Summary Would consider a transesophageal echocardiogram if clinically indicated. The study was technically di fficult with many images being suboptimal in quality. The left ventricle is not well visualized. Left ventricular systolic function is grossly normal. Regional wall motion abnormalities cannot be excluded due to limited visualization. The left ventricular apex is not well visualized. The right ventricle is not well visualized. There is a pacemaker lead in the right ventricle. Borderline right ventricular enlargement. Right ventricular function cannot be assessed due to poor image quality. The left atrium is mildly dilated. There is mild mitral regurgitation. There is mild to moderate tricuspid regurgitation. Right ventricular systolic pressure is elevated at >60mmHg. There is severe pulmonary hypertension. There is a prosthetic aortic valve. Moderate to severe aortic regurgitation. Mild to moderate valvular aortic stenosis. There is no pericardial effusion. MD Gayle *Ijeoma 09/18/2019 03:02 PM
--- NOTE | 2019-09-18 15:59 | CON.ID ---
Consult Consult Specialty:: infectious diseases Referred by:: Mariya Reason for Consultation:: r/o septic rt knee - History of Present Illness Chief Complaint: pain and swelling of the rt knee History of Present Illness: 49-year-old male with a PMH significant for a congenital heart condition diagnosed at age 7, s/p mechanical aortic valve replacement at age 12, on lifelong coumadin. Also with heart failure (NOS) on high dose diuretics; s/p AICD in December 2018; s/p non-emergent cardiac cath several weeks ago, . Also with chronic kidney disease with a baseline Cr 2.6-->3, and chronic hematuria. No recent changes in medications. On Saturday patient developed pain in his right knee. The pain has been severe and has prevented weight-bearing and ambulation. There is no distal numbness tingling pain or weakness in the calf, ankle, or foot. He has had no fever/chills or other sign of systemic illness. He has no previous history of gout or arthritis. mentions that the swelling is better was seen by ortho and rheumatology currently feels slightly better - History Source History Provided By: Patient Limitations to Obtaining History: No Limitations - Past Medical History Cardio/Vascular: Yes: Other (congenital heart disease) Renal/: Yes: Renal Inusuff - Past Surgical History Past Surgical History: Yes: Valve Replacement - Alcohol/Substance Use Hx Alcohol Use: No - Smoking History Smoking history: Never smoked Have you smoked in the past 12 months: No Home Medications - Allergies Allergies/Adverse Reactions: Allergies Allergy/AdvReac Type Severity Reaction Status Date / Time No Known Allergies Allergy Verified 09/17/19 08:43 - Home Medications Home Medications: Ambulatory Orders Warfarin Sodium [Coumadin] 2.5 mg PO ASDIR 09/17/19 Warfarin Sodium [Coumadin] 5 mg PO ASDIR 09/17/19 Carvedilol [Coreg -] 12.5 mg PO BID tablet 09/18/19 Furosemide [Lasix -] 80 mg PO BID@0600,1800 tablet 09/18/19 Metolazone [Zaroxolyn -] 2.5 mg PO DAILY@0530 tablet 09/18/19 Piperacillin/Tazob 2.25 gm [Zosyn -] 2.25 gm IVPB Q6H-IV vial 09/18/19 Vancomycin 1,000 mg IVPB Q24H vial 09/18/19 Review of Systems - Review of Systems Constitutional: reports: No Symptoms Eyes: reports: No Symptoms HENT: reports: No Symptoms Neck: reports: No Symptoms Cardiovascular: reports: No Symptoms Respiratory: reports: No Symptoms Gastrointestinal: reports: No Symptoms Genitourinary: reports: No Symptoms Musculoskeletal: reports: Other Integumentary: reports: Erythema (rt knee) Neurological: reports: No Symptoms Endocrine: reports: No Symptoms Hematology/Lymphatic: reports: No Symptoms Psychiatric: reports: No Symptoms Physical Exam Vital Signs: Vital Signs Temperature 98.5 F 09/18/19 14:03 Pulse Rate 66 09/18/19 14:03 Respiratory Rate 18 09/18/19 14:03 Blood Pressure 98/57 L 09/18/19 14:03 O2 Sat by Pulse Oximetry (%) 98 09/18/19 14:03 Constitutional: Yes: Well Nourished, Calm, Mild Distress Eyes: Yes: Conjunctiva Clear Neck: Yes: Supple Cardiovascular: Yes: Regular Rate and Rhythm Respiratory: Yes: Regular, CTA Bilaterally Gastrointestinal: Yes: Normal Bowel Sounds, Soft Musculoskeletal: Yes: Other (knee joint swelling) Extremities: Yes: Other Neurological: Yes: Alert, Oriented Psychiatric: Yes: Alert, Oriented Labs: CBC, BMP 09/18/19 07:21 09/18/19 07:21 Imaging - Results X-ray: Report Reviewed, Image Reviewed Assessment/Plan 49-year-old male with a PMH significant for mechanical aortic valve replacement age 12, CHF, AICD, recent non-emergent cardiac cath, CKD, chronic hematuria. Admitted for a swollen, painful right knee. Painful, swollen right knee Hypokalemia Chronic kidney disease Chronic hematuria Mechanical aortic valve plan knee could not be tapped because of supratheurapatic inr continue empiric abx monitor closely
[2019-09-18] MEDS ORDERED: VANCOMYCIN 1 GRAM (PRE-DOCKED) 1,000 MG/250 ML BAG IVPB SCH (21:00)
[2019-09-18] MEDS ORDERED: PIPERACILLIN/TAZOB 2.25 GM 2.25 GM in DEXTROSE 5%-WATER - 50 ML IVPB SCH (21:00)
[2019-09-19 01:42] VITALS: BP 100/50
[2019-09-19 02:40] VITALS: PULSE 65; TEMP 97.5
== END 2019-09-19 02:35 | disposition short-term general hospital (02) | DRG 351 ==
LOC: FER 08:42 → FM/S 11:19
PROVIDERS: ADMIT Internal Medicine; ATTEND Nurse Practitioner Acute Care
DX: M10.9 Gout, unspecified (principal); E87.1 Hypo-osmolality and hyponatremia; E87.6 Hypokalemia; I10 Essential (primary) hypertension; M25.561 Pain in right knee; N18.9 Chronic kidney disease, unspecified; D69.6 Thrombocytopenia, unspecified; I50.42 Chronic combined systolic (congestive) and diastolic (congestive) heart failure; R31.9 Hematuria, unspecified
CPT/HCPCS: 36415; 73560-TC-RT-FY; 80048; 80053; 81003; 81015; 82550; 83735; 83880; 84100; 84484; 84550; 85025; 85610; 85651; 85730; 86140; 87040; 87086; 93005; 93306-TC; 99284-25; G0480; J0131; J1644